=== PATIENT | male | born 1955 | race Caucasian/White ===

== ENCOUNTER 2022-03-27 08:03 | Day surgery (SDC) | payer OTHER, SELFPAY ==
[2022-03-27 08:28] VITALS: BP 142/57; PULSE 66; RESP 16; TEMP 36.1; O2SAT 98
[2022-03-27] MEDS: Tropicam./Phenyleph. (1/2.5%) 5 ML BTL OS ×3 (08:43→08:53)
--- NOTE | 2022-03-27 09:11 | ANES.PREOP_ITS ---
General Info Date of Service Date Performed: 03/27/22 Height: 5 ft 10 in Weight: 86.2 kg Body Mass Index (BMI): 27.2 Surgical Procedure: Operation Date: 03/27/22 10:40 Proposed Procedure Side Surgeon p Cataract Extraction with IOL Implant Left Andrew Martell MD Meds Allergies and Home Medications Allergies Allergy/AdvReac Type Severity Reaction Status Date / Time Influenza Virus Vaccines Allergy Severe Other (See Verified 03/27/22 08:28 Comment) Ndxenuo-NIT-DzN Reductase Allergy Severe Other (See Verified 03/27/22 08:28 Inhibitor Comment) Home Medication Medication Instructions Recorded adalimumab 40 mg/0.8 mL 40 mg subcut DIRECTED 03/24/22 subcutaneous syringe kit (Humira) ascorbic acid (vitamin C) 1,000 mg 1,000 mg PO BID 03/24/22 tablet (Vitamin C) metoprolol tartrate 100 1 tab PO BID 03/24/22 mg-hydrochlorothiazide 25 mg tablet omega-3 fatty acids 4 cap PO DAILY 03/24/22 Current Visit Medications: Current Medications Generic Name Dose Route Start Last Admin Trade Name Freq PRN Reason Stop Dose Admin Acetaminophen 1,000 mg 03/27/22 06:00 Acetaminophen 500 Mg Tab PO Q4H PRN PRN Miscellaneous Medication 0 ml 03/27/22 06:00 Prednisolone 1%, Moxifloxacin 0.5%, Nepafenac 0.1% 5ml Btl OS DIRECTED [facility] Miscellaneous Medication 0 ml 03/27/22 06:00 03/27/22 08:53 Tropicam./Phenyleph. (1/2.5%) 5 Ml Btl OS 1 drp DIRECTED [facility] Administration Tetracaine HCl 0 ml 03/27/22 06:00 Tetracaine 0.5% 4 Ml Btl OS DIRECTED [facility] Medical History Medical History Age-related nuclear cataract, left Asthma Atopic dermatitis Carpal tunnel syndrome of right wrist Dyslipidemia Exacerbation of intermittent asthma Hypertensive disorder Lesion of ulnar nerve Leukocytosis Lyme disease Pleural effusion *Pt is able able to lay flat Per H&P note: Pleural effusion-with ongoing productive chronic cough. based on exam today I suspect that left effusion is reaccumulating . he has follow- up in a few weeks with pulmonology and rheumatology at [facility] for a repeat CT. hopefully as his rheumatoid gets under better control this will also improve. He declines other intervention for now as he wants to wait and see what they have to say later this month Prediabetes Reduced libido Seronegative rheumatoid arthritis Smoker Testicular hypofunction Wrist joint pain Medical History Comments:: Is able to lay flat Surgical History Surgical History (Updated 03/27/22 @ 08:27 by Hawk Baron) Hx of right cataract extraction Tobacco Smoking/Tobacco Use Status: Current every day Tobacco Type: cigarettes Alcohol Alcohol Intake: never Substance Use Substance use: Never Substance use type: does not use Vital Signs and Lab Results Vital Signs Most Recent Vital Signs in EMR: Most Recent Vital Signs Temp Pulse Resp BP Pulse Ox 36.1 C L 66 16 142/57 H 98 03/27/22 08:28 03/27/22 08:28 03/27/22 08:28 03/27/22 08:28 03/27/22 08:28 Lab Results Blood Type / Crossmatch: No Data to Display Complete Blood Count: No Data to Display Complete Metabolic Panel: No Data to Display Liver Function Panel: No Data to Display Coagulation Panel: No Data to Display Cardiac Panel: No Data to Display Arterial Blood Gas: No Data to Display Venous Blood Gas: No Data to Display Pancreas Panel: No Data to Display Thyroid Panel: No Data to Display Infectious Disease: No Data to Display Blood Cultures: No Data to Display Toxicology Panel: No Data to Display Anesthesia Assessment and Plan Anesthesia History Personal History: No History of Anesthesia Complications Family History: No Family History of Anesthesia Complications Exercise Tolerance Exercise Tolerance: Metabolic Equivalents>4 Cardiac & Pulmonary Exam Cardiac Exam: Normal S1/S2 Heart Sounds Pulmonary Exam: Clear Bilateral Breath Sounds Implantable Cardiac Device Does patient have a Pacemaker or an ICD?: No Airway Exam Known Difficult Airway: No Mallampati Class: 2 Mouth Opening: Normal (> 3cm) Thyromental Distance: Greater than 3 cm Facial Hair: Full Velarde Neck Range of Motion: Full ROM Neck Circumference: Normal Teeth Condition: Normal Dentition ASA Classification ASA Score: ASA 2 Emergency Case?: No NPO Status NPO Status: NPO Clears >2 hours, Solids >8 hours Anesthesia Plan Resuscitation Status: Full Code Anesthesia Technique: MAC Anesthesia Airway Planned: Natural Airway Monitors Used: Standard Monitors
[2022-03-27 09:37] VITALS: BMI 27.2
[2022-03-27] MEDS: Tetracaine 0.5% 4 ML BTL OS (10:00)
[2022-03-27] MEDS: Balanced Salt Soln.-PLUS 500 ML BAG (10:02)
[2022-03-27] MEDS: Duovisc Viscoelastic System EACH 1 EACH (10:02)
[2022-03-27] MEDS: Lidocaine 2% Jelly 6 ML SYR (10:04)
[2022-03-27] MEDS: Povidone-Iodine Ophth 30 ML BTL (10:06)
--- NOTE | 2022-03-27 10:26 | ROE_ITS ---
Date of service: 03/27/22 Time of Service: 09:26 Operative Note Operative Note DATE OF PROCEDURE: 03/27/22 PRE-OP DIAGNOSIS: Nuclear cataract, left eye POST-OP DIAGNOSIS: same PROCEDURE: Cataract extraction using phacoemulsification with intraocular lens implant, left eye SURGEON: Andrew Martell ANESTHESIA TYPE: Local By Surgeon and MAC Refer to Anesthesia Record PATHOLOGY: none sent COMPLICATIONS: None Patient was transported to: same day Patient's condition: stable Implants: Mauro [employer] Mauro / [employer] Tecnis [id number] Indications: Progressive decreased vision due to cataract, left eye Procedure Description: CATARACT SURGERY OPERATIVE REPORT PREOPERATIVE DIAGNOSIS: 1. Nuclear cataract, left eye POSTOPERATIVE DIAGNOSIS: Same OPERATION: 1. Cataract extraction using phacoemulsification with posterior chamber intraocular lens implant, left eye. IOL: IOL Basic Acoustic Analyst/Model: Mauro & Mauro / CESAR Tecnis [id number] IOL Power: + 22.0 diopters IOL Serial Number: [id number] Optic Diameter: 6.0 mm Haptic/Overall Diameter: 13.0 mm PHACO INFO: OdinGiven.to Vision System with OZil and Active Fluidics Cumulative Dispersed Energy (CDE): 12.99 seconds SURGEON: Andrew Martell MD, PHOEBE ANESTHESIA: Monitored A [facility] (MAC), with local sub-tenon's anesthetic infiltration COMPLICATIONS: None SPECIMENS: None INDICATIONS FOR PROCEDURE: The patient is a 66-year-old gentleman with history of progressive decreased vision in his left eye. Previously underwent cataract surgery in the right eye several years ago. He has a moderate nuclear cataract in the left eye. The option of cataract surgery was offered to the patient and he felt he was symptomatic enough that he wished to proceed. PROCEDURE: The correct surgical eye was identified and marked as the left eye and the pupil was dilated in the preoperative area using mydriatics and cycloplegics. The dilated pupil size was 7.0 mm. He elected to proceed without oral sedation.. The patient was brought to the operating room where cardiopulmonary monitoring was instituted and surgical time-out was performed, confirming the correct operative eye and IOL power. Topical anesthesia was administered and ophthalmic povidone-iodine 5% was instilled into the conjunctival fornices. Lidocaine gel was applied to the cornea and the aston-ocular area was prepped with Betadine 10% solution and draped in the usual sterile fashion for intraocular surgery, including an aperture drape. A Tegaderm transparent film dressing was cut in half and used to cover the lashes and lid margins. Care was taken to sequester the lashes and lid margins under the Tegaderm dressing. A lid speculum was placed between the lids of the operative eye and the Odin LuxOR Revalia operating microscope was maneuvered into position. Jennifer scissors were then used to make a conjunctival buttonhole approximately 6mm posterior to the limbus in the inferonasal quadrant. Blunt dissection was carried out to expose bare sclera, and a blunt-tipped sub-tenon?s anesthesia cannula was introduced and passed posteriorly along the globe where non- preserved plain lidocaine was injected into posterior sub-Tenon?s space. A sideport knife was used to make a paracentesis port superiorly/superiortemporally. Intraocular phenylephrine/lidocaine was injected int the anterior chamber.. The anterior chamber was filled with viscoelastic. A 2.4mm keratome knife was used to construct a 2-plane near-clear corneal tunnel extending 2.0mm into clear cornea temporally. A flap was raised on the anterior capsule and capsulorhexis forceps were used to complete a continuous curvilinear capsulorhexis of 5.0 mm. Balanced salt solution was then used to perform cortical cleaving hydrodissection and nuclear hydrodelineation until the lens could be freely rotated within the capsular bag. The lens nucleus was then disassembled and removed within the capsular bag and iris plane using phacoemulsification. Residual cortical material was removed using the 45-degree angled silicone I/A tip with 0.3mm port. The posterior capsule was carefully polished to remove as much residual lens epithelial cells as safely possible. The capsular bag was then inflated and the anterior chamber deepened with viscoelastic. The lens implant described above was inserted into the capsular bag using the CESAR [place] Injector. A Kuglen hook was used to dial the IOL into position. Residual viscoelastic was then removed first from posterior to the IOL, then from the anterior chamber using the I/A handpiece. The lens implant was noted to center nicely within the capsular bag. The incisions were stromally hydrated, and the anterior chamber was reformed using BSS. Then 0.5cc of moxifloxacin 1.0mg/ml were injected into the capsular bag and anterior chamber. The incisions were checked with a Weck spear and found to be secure. Several drops of ophthalmic povidone-iodine 5% were then applied to the eye followed by two drops of Imprimis combination prednisolone/moxifloxacin/nepafenac solution. The drapes were removed and a clear plastic protective eye shield was placed over the eye. The patient was then returned to [facility] Day Surgery in stable condition.
--- NOTE | 2022-03-27 10:26 | W.PM.DSUDISC ---
Discharge Plan Disposition Patient Disposition: HOME Condition: Good Discharge Details Attending Provider: Andrew Martell Primary Care Provider: Wali iWlcox Home Meds and New Rx's Prescriptions: No Action ascorbic acid (vitamin C) [Vitamin C] 1,000 mg Tablet 1,000 mg PO BID metoprolol ta-hydrochlorothiaz 100-25 mg Tablet 1 tab PO BID Humira 40 mg/0.8 mL Syringe Kit 40 mg SUBCUT DIRECTED Fish Oil Capsule 4 cap PO DAILY Discharge Instructions Stand Alone Forms: Post-op Topical Cataract, Sharron Gomez (DSU) Discharge Orders Discharge Orders: Discharge Order (Routine); Ordered 03/27/22 Ordered By: Andrew Martell DS: Diagnosis Discharge Diagnosis (1) Nuclear sclerotic cataract of left eye: Status: Resolved
[2022-03-27 10:31] VITALS: BP 104/88; PULSE 66; RESP 18; TEMP 36.5; O2SAT 98
--- NOTE | 2022-03-27 10:40 | W.ANESPOSTOP ---
Postoperative Evaluation Date, Time and Location Date Performed: 03/27/22 Time Performed: 10:31 Patient Location: Day Surgery Unit Vital Signs Most Recent Imported Vital Signs: Most Recent Vital Signs Temp Pulse Resp BP Pulse Ox 36.5 C 66 18 104/88 98 03/27/22 10:31 03/27/22 10:31 03/27/22 10:31 03/27/22 10:31 03/27/22 10:31 Pain Score Most Recent Pain Score: Most Recent Pain Score Pain Level 0 03/27/22 10:31 Assessment Mental Status: Awake (Alert & Oriented to Patient Baseline) Airway and Respiratory Function: Patent airway with normal (patient baseline) respiratory exam Cardiovascular Function: Hemodynamically Stable Hydration Status: Adequately Hydrated Nausea & Vomiting: No Nausea or Vomiting Pain: Pt. Denies Any Pain Peripheral Nerve Block: Patient did not receive a nerve block
== END 2022-03-27 10:48 | disposition home or self-care (01) ==
PROVIDERS: PCP Physician Assistant Medical; Visit Provider Ophthalmology
PROC: (CPT 66984; principal; 2022-03-27 10:30)
DX: H25.12 Age-related nuclear cataract, left eye (principal); J45.909 Unspecified asthma, uncomplicated; I10 Essential (primary) hypertension; E78.5 Hyperlipidemia, unspecified
CPT/HCPCS: 66984; V2632